=== PATIENT | male | born 1975 | race Caucasian/White ===

== ENCOUNTER → 2017-02-03 | Outpatient (CLI) | payer OTHER ==
[~2017-02-03] MED LIST: ADVIN10/60 INH; ALBUAER2 INH; AMOX500C3 PO; IBUP-1428 PO; SNG10 PO
[2017-02-03 17:11] LABS: BASO % 0.3 %; BASO ABS # 0.03 K/uL (0-0.2); COMPLETE YES; EOS % 3.4 %; HEMATOCRIT 39.9 % (42-52); IG% 0.2 %; LYMPH % 34.9 %; LYMPH ABS # 3.08 K/uL (1.2-3.4); MEAN CELL VOLUME 87.1 fL (80-100); MEAN CORPUSCULAR HEMOGLOBIN 29.5 pg (25-34); MEAN CORPUSCULAR HGB CONC 33.8 g/dl (32-36); MONO % 5.7 %; NEUT % 55.5 %; PLATELET COUNT 311 K/uL (130-400); RED BLOOD COUNT 4.58 M/uL (4.7-6.1); WHITE BLOOD COUNT 8.83 K/uL (4.8-10.8)
[2017-02-03 19:52] LABS: ALT/SGPT 29 U/L (12-78); BLOOD UREA NITROGEN 12 mg/dl (7-18); BUN/CREATININE RATIO 13.4 (10-20); CALCIUM 9.1 mg/dl (8.5-10.1); CARBON DIOXIDE 30 mmol/L (21-32); CHLORIDE 104 mmol/L (98-107); CREATININE 0.86 mg/dl (0.60-1.40); GLUCOSE 93 mg/dl (70-99); POTASSIUM 4.1 mmol/L (3.5-5.1); SODIUM 140 mmol/L (136-145)
[2017-02-03 19:55] LABS: ALB/GLOB RATIO 1.1 (0.9-2); ALKALINE PHOSPHATASE 73 U/L (45-117); AST/SGOT 16 U/L (15-37)
== END | disposition home or self-care (01) ==
LOC: C.LABBC 15:09
PROVIDERS: ATTEND Family Medicine
DX: R13.10 Dysphagia, unspecified (principal); R63.4 Abnormal weight loss

== ENCOUNTER → 2017-02-09 | Outpatient (CLI) | payer OTHER ==
[2017-02-09 11:28] LABS: FERRITIN 235.4 ng/ml (8.0-388.0)
== END | disposition home or self-care (01) ==
LOC: C.LABBC 08:32
PROVIDERS: ATTEND Family Medicine
DX: D64.9 Anemia, unspecified (principal)

== ENCOUNTER → 2017-02-09 | Outpatient (CLI) | payer OTHER ==
[~2017-02-09] MED LIST changes: +OPTIRAY 320 IV PRN
--- NOTE | 2017-02-09 08:18 | DIAGNOSTIC IMAGING REPORT ---
CT NECK WITH INTRAVENOUS CONTRAST HISTORY: Jaw pain Dysphagia DO WITH ONLY (ARG) TECHNIQUE: Multiaxial CT images of the neck were performed following the use of intravenous contrast. COMPARISON STUDY: None. FINDINGS: The visualized brain parenchyma and orbits are unremarkable. The major mucosal airway surfaces are intact. The epiglottis and prevertebral soft tissues are normal in thickness. The thyroid gland enhances normally. The lungs are clear. Mild mucosal thickening within the paranasal sinuses. The mastoid air cells are clear. No suspicious lytic or blastic osseous lesions. Nasal septal perforation measuring 1.6 cm. The major salivary glands enhance symmetrically. No significant cervical lymphadenopathy. No masses identified. No significant abnormality at the submental location. The major cervical vessels enhance normally. IMPRESSION: 1. Mild mucosal thickening within the paranasal sinuses. No fluid levels identified. 2. Anterior nasal septal defect. 3. Otherwise, no significant abnormality identified within the neck. Electronically signed by: Ole Bell M.D. 02/09/2017 8:16 AM Dictated Date/Time: 02/09/2017 8:09 AM
== END | disposition home or self-care (01) ==
LOC: C.CTS 07:05
PROVIDERS: ATTEND Family Medicine
DX: R68.84 Jaw pain (principal); R13.10 Dysphagia, unspecified; J34.89 Other specified disorders of nose and nasal sinuses

== ENCOUNTER → 2017-05-28 | Outpatient (CLI) | payer OTHER ==
[~2017-05-28] MED LIST changes: -OPTIRAY 320 IV PRN
[2017-05-28 14:20] LABS: BENZODIAZEPINE, URINE NEG (NEG); COCAINE,URINE NEG (NEG); PHENCYCLIDINE, URINE NEG (NEG)
[2017-06-01 00:50] LABS: NORBUPRENORPHINE QNT 464 NG/ML (CUTOFF=2)
== END | disposition home or self-care (01) ==
LOC: C.LABBC 11:44
PROVIDERS: ATTEND Psychiatry & Neurology Psychiatry
DX: F11.20 Opioid dependence, uncomplicated (principal); Z79.899 Other long term (current) drug therapy

== ENCOUNTER → 2017-08-02 | Outpatient (CLI) | payer OTHER ==
[2017-08-02 15:21] LABS: BENZODIAZEPINE, URINE NEG (NEG); COCAINE,URINE NEG (NEG); PHENCYCLIDINE, URINE NEG (NEG)
== END | disposition home or self-care (01) ==
LOC: C.LABBC 12:24
PROVIDERS: ATTEND Psychiatry & Neurology Psychiatry
DX: F11.20 Opioid dependence, uncomplicated (principal)

== ENCOUNTER 2018-01-04 10:05 | Emergency (ER) | payer OTHER ==
[2018-01-04 10:05] VITALS: BP 0/0; O2SAT 0
[2018-01-04 10:07] VITALS: PULSE 0
--- NOTE | 2018-01-04 10:20 | EMERGENCY ROOM VISIT NOTE ---
History Report prepared by Yasibmaci: Kate Garcia Under the Supervision of: Dr. Abdiel Rodriguez M.D. First contact with patient: 10:00 Stated Complaint: TRAUMA CARDIAC ARREST History of Present Illness The patient is a 44 year old male who presents to the Emergency Room with complaints of an episode of trauma. Per EMS, the patient fell down five stories onto his anterior side. The patient has been coding over 20 minutes. Per EMS, the patient has extensive head trauma, multiple rounds of epinephrine, and was intubated. History limited secondary to the patient's cardiac arrest. Source of History: patient History Limited By: cardiac arrest, other (trauma) Review of Systems ROS limited secondary to the patient's traumatic arrest status. Past Medical & Surgical Medical Problems: (1) No Known Active Medical Problems Family History Patient reports no known family medical history. Social History Marital Status: Housing Status: lives with family Occupation Status: employed Current/Historical Medications Scheduled Amoxicillin (Amoxil), 500 MG PO TID Fluticasone Prop/Salmeterol (Advair Diskus 100/50 60 Dose), 1 PUFFS INH BID Montelukast (Singulair *), 10 MG PO DAILY Scheduled PRN Albuterol (Ventolin Hfa), 2 PUFFS INH QID PRN for SOB/Wheezing Ibuprofen (Motrin), 800 MG PO TID PRN for Pain Allergies Coded Allergies: BEE STING (Verified Allergy, Intermediate, anaphylaxis., 06/08/16) Physical Exam Vital Signs Date Time Temp Pulse Resp B/P (MAP) Pulse Ox O2 Delivery O2 Flow Rate FiO2 01/04/18 10:07 0 01/04/18 10:07 0 01/04/18 10:06 0 01/04/18 10:06 0 01/04/18 10:05 0 0 0/0 0 Physical Exam GENERAL: Unresponsive, GCS 3T. EYES: No scleral icterus, fixed right pupil. Left globe is ruptured. FACE: Deformity throughout left face. ENT: Mucous membranes moist, blood in bilateral nares. Blood running from left ear. ET Tube in place. NECK: Trachea is midline, no masses, no swelling. RESPIRATORY: Equal chest rise with ventilation, wet sounds. CHEST: Bilateral needles for decompression upper chest. CARDIOVASCULAR: No cardiac activity appreciated. GASTROINTESTINAL: Abdomen soft. Bowel sounds not present. No masses appreciated. EXTREMITIES: bruise left knee. laceration left 3rd digit palmar aspect. no pulses appreciated. NEUROLOGIC: Unresponsive, GCS 3T. SKIN: Right tibial IO. No rash, no jaundice, pale, mottled. Medical Decision & Procedures ED Course 1007: The patient was evaluated in room A1. A complete history and physical exam was performed. 1004: Ultrasound at bedside showed no cardiac effusion, no cardiac movement. 1007: . 1033: I made the patients , son, and parents of aware of his status. 1100: I discussed the case further with the patient's parents. Medical Decision 42 yr old male arrives via EMS after 5 story fall on to cement. I was made aware of patient en route by EMS with so far 10 min cardiac arrest after initially he was agonal with severe bradycardia. Intubated prior to arrival with bilateral anterior needle decompression as well as multiple round Epi through right IO. By time of arrival he has been in cardiac arrest > 20 min with good ATLS/ACLS. He is GCS 3T with no meds prior to arrival, and is found to have no cardiac activity on monitor nor by exam. He has extensive head injury with blood coming from left ear and ruptured left eye and face. This is a non-survivable event and further testing/treatment would be futile at this time. Shortly after arrival I declared him at 10:07 am. From this point clothes, tubes, etc were left in place. Medication Reconcilliation Current Medication List: was personally reviewed by me Impression Primary Impression: Head injury due to trauma Additional Impression: Traumatic cardiac arrest Scribe Attestation The scribe's documentation has been prepared under my direction and personally reviewed by me in its entirety. I confirm that the note above accurately reflects all work, treatment, procedures, and medical decision making performed by me. Departure Information Dispostion Problem Qualifiers
== END 2018-01-04 14:30 | disposition expired ==
LOC: EDBD 10:06 → C.EDA 10:07
DX: S09.8XXA Other specified injuries of head, initial encounter (principal); S80.02XA Contusion of left knee, initial encounter; I46.8 Cardiac arrest due to other underlying condition; S61.219A Laceration without foreign body of unspecified finger without damage to nail, initial encounter; W17.89XA Other fall from one level to another, initial encounter; Y92.89 Other specified places as the place of occurrence of the external cause